=== PATIENT | female | born 1990 | race Caucasian/White ===

== ENCOUNTER → 2024-03-03 14:06 | Outpatient (REF) | payer BC, SELFPAY | LOC: REG 14:06 | PROVIDERS: ATTENDING PHYSICIAN Obstetrics & Gynecology | DX: O09.523 Supervision of elderly multigravida, third trimester (principal) | CPT/HCPCS: 36415; 86850; 86900; 86901 ==

== ENCOUNTER 2024-03-25 19:26 | Inpatient (IN) | payer BC, SELFPAY ==
[2024-03-25 20:04] VITALS: BMI 23.9
[2024-03-25 20:06] VITALS: BP 119/71
[2024-03-25] MEDS: CYTOTEC 50 MICROGRAM VAG (20:22)
[2024-03-25 20:47] LABS: % Basophils 0.3 % (0-2); % Eosinophils 1.1 % (0-6); % Immature Granulocytes 0.3 % (0-0.5); % Lymphocytes 21.2 % (20.5-51.1); % Monocytes 9.1 % (1.7-9.3); Absolute Eosinophils 0.1 10^3/uL (0-0.7); Absolute Lymphocytes 1.3 10^3/uL (1.2-3.4); Absolute Monocytes 0.6 10^3/uL (0.1-0.6); Absolute Neutrophils 4.2 10^3/uL (1.4-6.5); Hematocrit 34.1 % (37.0-47.0); Hemoglobin 11.9 g/dL (12.0-16.0); Mean Corp Hgb Conc. 34.9 g/dL (33.0-37.0); Mean Corpuscular Hgb 30.7 pg (27.0-31.0); Mean Corpuscular Volume 88.1 fL (81.0-99.0); Mean Platelet Volume 11.5 fL (7.4-10.4); Nucleated Red Blood Cells % 0 %; Platelet Count 211 10^3/uL (130-400); Red Blood Cell Count 3.87 10^6/uL (4.20-5.40); Red Cell Dist. Width 12.4 % (11.5-14.5); White Blood Cell Count 6.2 10^3/uL (4.8-10.8)
[2024-03-26] MEDS: CYTOTEC PO ×2 (03:59→09:38)
[2024-03-26] MEDS: CYTOTEC 50 MICROGRAM PO (03:59)
[2024-03-26] MEDS: VALTREX 500 MG PO (08:13)
[2024-03-26] MEDS: SUBLIMAZE 100 MCG EPIDURAL (09:47)
[2024-03-26] MEDS: FENTANYL/BUPIVACAINE 100 EPIDURAL (09:48)
[2024-03-26] MEDS: SENOKOT-S 1 TABLET PO (17:29)
[2024-03-26] MEDS: MOTRIN 600 MG PO ×2 (17:29→23:42)
[2024-03-26] MEDS: TYLENOL 650 MG PO (23:42)
[2024-03-27] MEDS: TYLENOL 650 MG PO ×3 (05:22→18:28)
[2024-03-27 05:24] LABS: Hematocrit 34.2 % (37.0-47.0); Hemoglobin 11.6 g/dL (12.0-16.0)
[2024-03-27] MEDS: MOTRIN 600 MG PO ×3 (05:56→18:28)
[2024-03-27] MEDS: PRENATAL PLUS 1 TABLET PO (08:27)
[2024-03-27] MEDS: SENOKOT-S 1 TABLET PO (18:28)
[2024-03-28] MEDS: TYLENOL 650 MG PO ×2 (00:37→07:47)
[2024-03-28] MEDS: MOTRIN 600 MG PO ×2 (00:38→07:47)
[2024-03-28] MEDS: PRENATAL PLUS 1 TABLET PO (07:47)
[2024-03-30 12:35] LABS: Syphilis/T. pallidum Ab Reflex Negative (Negative)
== END 2024-03-28 12:16 | disposition home or self-care (01) | DRG 807 ==
LOC: LDRP 19:26
PROVIDERS: Obstetrics & Gynecology; ADMITTING PHYSICIAN Obstetrics & Gynecology; FAMILY PHYSICIAN Family Medicine
PROC: 0HQ9XZZ Repair Perineum Skin, External Approach (ICD-10-PCS; 2024-03-25)
PROC: 10E0XZZ Delivery of Products of Conception, External Approach (ICD-10-PCS; 2024-03-25)
PROC: 3E0P7VZ Introduction of Hormone into Female Reproductive, Via Natural or Artificial Opening (ICD-10-PCS; 2024-03-25)
PROC: 10907ZC Drainage of Amniotic Fluid, Therapeutic from Products of Conception, Via Natural or Artificial Opening (ICD-10-PCS; 2024-03-25)
DX: O48.0 Post-term pregnancy (principal); Z37.0 Single live birth; O69.81X0 Labor and delivery complicated by cord around neck, without compression, not applicable or unspecified; Z3A.40 40 weeks gestation of pregnancy
CPT/HCPCS: 85014; 85018; 85025; 86780; 86850; 86900; 86901